=== PATIENT | female | born 1940 | race Caucasian/White ===

== ENCOUNTER 2021-12-06 07:55 | Emergency (ER) | payer OTHER, MEDICAID ==
[~2021-12-06] VITALS: Ht 165.1 cm; Wt 81.6 kg
[2021-12-06 08:09] VITALS: BP_SYST 172
--- NOTE | 2021-12-06 08:10 | NUR ---
Patient to ER bed 8 for evaluation. Side rails up. Report given to Concepción BANG.
--- NOTE | 2021-12-06 08:11 | NUR ---
ER at bedside examining patient.
--- NOTE | 2021-12-06 08:12 | NUR ---
81YO F WITH C/O LEFT KNEE PAIN X 2 DAYS. PAIN 10/10. TOOK TYLENOL AND UNRECALLED MEDICATION YESTERDAY WHICH PROVIDED NO RELIEF. PT REPORTS RECURRENT FLARE UPS OF SAME JOINT. DENIES TRAUMA OR INJURY TO AREA. PMH: ARTHRITIS
[2021-12-06] MEDS ORDERED: KETOROLAC TROMETHAMINE 60 MG/2 ML VIAL IM ONE (08:15)
[2021-12-06 08:37] LABS: BASOPHILS % (AUTO) 0.9 % (0.0-2.0); EOSINOPHILS # (AUTO) 0.2 K/uL (0.0-0.4); EOSINOPHILS % (AUTO) 5.4 % (0.0-4.0); HEMATOCRIT 38.5 % (36-48); LYMPHOCYTES # (AUTO) 1.8 K/uL (1.0-5.5); LYMPHOCYTES % (AUTO) 39.7 % (20.5-51.5); MEAN CORPUSCULAR HEMOGLOBIN 28 pg (27-31); MEAN CORPUSCULAR HGB CONC 34 % (32-36); MEAN CORPUSCULAR VOLUME 84 fL (79.0-98.0); MONOCYTES # (AUTO) 0.5 K/uL (0.0-1.0); MONOCYTES % (AUTO) 11.2 % (1.7-9.3); NEUTROPHILS # (AUTO) 1.9 K/uL (1.8-7.7); NEUTROPHILS % (AUTO) 42.8 % (40.0-70.0); PLATELET COUNT (AUTO) 295 K/uL (130-430); RED BLOOD CELL COUNT(AUTO) 4.62 MIL/uL (4.2-6.2); RED CELL DISTRIBUTION WIDTH 14.6 % (9.0-15.0); WHITE BLOOD COUNT (AUTO) 4.4 K/uL (4.8-10.8)
[2021-12-06 08:52] LABS: ANION GAP 13 (5-15); CALCIUM 8.4 mg/dL (8.4-11.0); CHLORIDE 102 mmol/L (98-107); CREATININE 0.98 mg/dL (0.55-1.30); GLUCOSE 100 mg/dL (70-99); POTASSIUM 3.8 mmol/L (3.5-5.1); SODIUM SERUM 137 mmol/L (136-145); UREA NITROGEN, BLOOD 14 mg/dL (8-21)
[2021-12-06 08:58] LABS: ALANINE AMINOTRANSFERASE 25 U/L (12-78); ALBUMIN 3.7 g/dL (3.4-4.8); ASPARTATE AMINOTRANSFERASE 25 U/L (10-37); TOTAL BILIRUBIN 0.8 mg/dL (0.0-1.0); URIC ACID 5.6 mg/dL (2.4-7.0)
[2021-12-06 09:43] LABS: ERYTHROCYTE SEDIMENTATION RATE 18 MM/HR (0-20)
[2021-12-06 10:22] LABS: C-REACTIVE PROTEIN QUANT < 0.2 mg/dL (0-0.5)
[2021-12-06] MEDS ORDERED: IBUP-1969 PO (10:25)
[2021-12-06] MEDS ORDERED: TRAM50TA2 PO (10:25)
[2021-12-06] MEDS ORDERED: HYDR-3917 PO (10:25)
--- NOTE | 2021-12-06 10:37 | NUR ---
Patient given written and verbal discharge instructions and verbalizes understanding. ER MD discussed with patient the results and treatment provided. Patient in stable condition. ID arm band removed. Rx of TRAMADOL, IBUPROFEN given. Patient educated on pain management and to follow up with PMD. Pain Scale 5. Opportunity for questions provided and answered. Medication side effect fact sheet provided.
[2021-12-06 10:38] VITALS: BP_SYST 172
== END 2021-12-06 10:37 | disposition home or self-care (01) ==
LOC: SED 07:55
DX: M17.12 Unilateral primary osteoarthritis, left knee (principal); M25.562 Pain in left knee; E03.9 Hypothyroidism, unspecified
CPT/HCPCS: 36415; 73564; 80053; 84550; 85025; 85651; 86140; 96372; 99284; J1885